=== PATIENT | male | born 1995 | race Caucasian/White ===

== ENCOUNTER 2019-02-16 18:08 | Emergency (ER) | payer OTHER ==
--- NOTE | 2019-02-16 18:40 | ERPHSYRPT ---
- History of Present Illness Time Seen by Provider: 02/16/19 18:39 Source: patient Exam Limitations: no limitations Patient Subjective Stated Complaint: pt stated that headache began yesterday at 3 pm and has been increasing in pain ever since, pt rates pain 01/03 Triage Nursing Assessment: pt stated he has had headache for the past 24 hours, pt eyes are equal and reactive, felt carbonizer equal, presses and pulls equal, no numbness stated today, vitals wnl Timing/Duration: yesterday, gradual onset, other (persistent JULIO, OTC med. helping little) Quality: dullness, throbbing Head Pain Location: frontal Severity of Pain-Max: moderate Severity of Pain-Current: moderate Recent Head Trauma: no recent headache/trauma, occasional headaches Modifying Factors: Improves With: exposure to light Associated Symptoms: nausea/vomiting, sensitive to light, No confusion, No facial pain, No fever/chills, No nasal congestion, No nasal drainage, No sinus infection, No stiff neck, No trouble walking, No vision changes Previous symptoms: same symptoms as today (worse than usual JULIO) Allergies/Adverse Reactions: No Known Drug Allergies Allergy (Unverified 02/16/19 18:25) Immunizations Up to Date: Yes - Review of Systems Constitutional: No Fever, No Chills Eyes: No Symptoms, No Eye Pain, No Vision Changes Ears, Nose, & Throat: No Symptoms, No Nose Congestion, No Nose Discharge, No Throat Pain, No Throat Swelling Respiratory: No Cough, No Dyspnea Cardiac: No Chest Pain, No Edema, No Syncope Abdominal/Gastrointestinal: Nausea, No Abdominal Pain, No Vomiting, No Diarrhea Genitourinary Symptoms: No Dysuria Musculoskeletal: No Symptoms, No Back Pain, No Neck Pain Skin: No Symptoms, No Rash Neurological: Headache, No Dizziness, No Focal Weakness, No Gait Changes, No Lethargy, No Sensory Changes, No Speech Changes, No Vertigo Psychological: No Symptoms Endocrine: No Symptoms Hematologic/Lymphatic: No Symptoms Immunological/Allergic: No Symptoms All Other Systems: Reviewed and Negative - Past Medical History Pertinent Past Medical History: Yes Neurological History: No Pertinent History ENT History: No Pertinent History Cardiac History: No Pertinent History Respiratory History: No Pertinent History Endocrine Medical History: No Pertinent History Musculoskeletal History: No Pertinent History GI Medical History: No Pertinent History History: No Pertinent History Psycho-Social History: No Pertinent History Male Reproductive Disorders: No Pertinent History - Past Surgical History Past Surgical History: No - Social History Smoking Status: Never smoker Exposure to second hand smoke: Yes Drug Use: none Patient Lives Alone: No - Nursing Vital Signs Nursing Vital Signs: Initial Vital Signs Temperature 99 F 02/16/19 18:10 Pulse Rate 70 02/16/19 18:10 Respiratory Rate 18 02/16/19 18:10 Blood Pressure 144/74 02/16/19 18:10 O2 Sat by Pulse Oximetry 98 02/16/19 18:10 Pain Scale Pain Intensity 0 - Physical Exam General Appearance: moderate distress, alert, anxiety Eye Exam: PERRL/EOMI, eyes nml inspection Ears, Nose, Throat Exam: normal ENT inspection, TMs normal, pharynx normal, moist mucous membranes Neck Exam: normal inspection, non-tender, supple, full range of motion, No meningismus, No limited range of motion, No lymphadenopathy, No midline tenderness Respiratory Exam: normal breath sounds, lungs clear, airway intact Cardiovascular Exam: regular rate/rhythm, normal heart sounds Gastrointestinal/Abdominal Exam: soft, normal bowel sounds Back Exam: normal inspection, normal range of motion Extremity Exam: normal inspection, normal range of motion Mental Status Exam: alert, oriented x 3, cooperative apprentice painter brush Exam: normal hearing, normal speech, PERRL Coordination/Gait Exam: normal gait Motor/Sensory Exam: no motor deficit, no sensory deficit SpO2: 98 - Course Nursing assessment & vital signs reviewed: Yes - CT Exams Head CT Interpretation: Negative, Tele-radiologist Report Ordered Tests: Active Orders 24 hr Category Date Time Status HEAD WITHOUT CONTRAST [CT] Stat Exams 02/16/19 18:58 Taken CBC W DIFF Stat Lab 02/16/19 19:10 Completed CMP Stat Lab 02/16/19 19:10 Completed Manual Differential NC Stat Lab 02/16/19 19:10 Completed Medication Summary Discontinued Medications Generic Name Dose Route Start Last Admin Trade Name Freq PRN Reason Stop Dose Admin Lactated Ringer's 1,000 mls @ 999 mls/hr 02/16/19 18:56 02/16/19 20:23 Lactated Ringers IV 02/16/19 19:56 Infused .Q1H1M ONE Infusion Lactated Ringer's Confirm 02/16/19 19:07 Lactated Ringers Administered 02/16/19 19:08 Dose 1,000 mls @ ud IV .STK-MED ONE Ketorolac Tromethamine 30 mg 02/16/19 20:08 02/16/19 20:18 Toradol 30 Mg Injection IV 02/16/19 20:09 30 mg STAT ONE Administration Ketorolac Tromethamine Confirm 02/16/19 20:16 Toradol 30 Mg Injection Administered 02/16/19 20:17 Dose 30 mg .ROUTE .STK-MED ONE Prochlorperazine Edisylate 10 mg 02/16/19 18:58 02/16/19 19:11 Compazine 10 Mg/2 Ml IV 02/16/19 18:59 10 mg STAT ONE Administration Prochlorperazine Edisylate Confirm 02/16/19 19:07 Compazine 10 Mg/2 Ml Administered 02/16/19 19:08 Dose 10 mg .ROUTE .STK-MED ONE Lab/Rad Data: Laboratory Result Diagrams 02/16/19 19:10 02/16/19 19:10 Laboratory Results 02/16/19 02/16/19 Range/Units 19:10 19:10 WBC 7.4 (4.0-10.5) K/mm3 RBC 5.21 (4.1-5.6) M/mm3 Hgb 15.9 (12.5-18.0) gm/dl Hct 44.7 (42-50) % MCV 85.8 (78-100) fl MCH 30.5 (26-32) pg MCHC 35.6 (32-36) g/dl RDW 12.9 (11.5-14.0) % Plt Count 160 (150-450) K/mm3 MPV 10.7 H (6-9.5) fl Segmented Neutrophils 48 (36.-66.) % Band Neutrophils 2 (0.0-2.0) % Lymphocytes (Manual) 46 H (24-44) % Monocytes (Manual) 3 (0.0-12.0) % Eosinophils (Manual) 1 (0.00-3.0) % Platelet Estimate NORMAL (NORMAL) RBC Morphology ABNORMAL Poikilocytosis 1+ Anisocytosis 1+ Sodium 142 (137-145) mmol/L Potassium 4.5 (3.5-5.1) mmol/L Chloride 103 (98-107) mmol/L Carbon Dioxide 29 (22-30) mmol/L Anion Gap 14.6 (5-15) MEQ/L BUN 12 (9-20) mg/dL Creatinine 0.73 (0.66-1.25) mg/dL Estimated GFR > 60.0 ML/MIN Glucose 99 (74-106) mg/dL Calcium 9.5 (8.4-10.2) mg/dL Total Bilirubin 0.80 (0.2-1.3) mg/dL AST 24 (17-59) U/L ALT 22 (0-50) U/L Alkaline Phosphatase 70 (38-126) U/L Serum Total Protein 7.7 (6.3-8.2) g/dL Albumin 4.4 (3.5-5.0) g/dL - Progress Progress: improved, re-examined Air Movement: good Progress Note: 02/16/19 22:33 JULIO almost completely resolved with med. Recheck with PCP prn. Blood Culture(s) Obtained: No Antibiotics given: No Counseled pt/family regarding: lab results, diagnosis, need for follow-up, rad results - Departure Departure Disposition: Home Clinical Impression: Headache Qualifiers: Headache type: other headache syndrome Qualified Code(s): G44.89 - Other headache syndrome Condition: Stable Critical Care Time: No Referrals: RUDY MCDONALD NP [Primary Care Provider] - Instructions: Headache, Adult (DC) Additional Instructions: See your family for a recheck if headache persists. Over the counter medicine like aleve OK to try. Plan of Treatment: OTC med. . see PCP
[2019-02-16] MEDS ORDERED: Lactated Ringers 1,000 ML IV ONE ×2 (18:56→19:07)
[2019-02-16] MEDS ORDERED: Compazine 10 MG/2 ML IV ONE (18:58)
[2019-02-16] MEDS ORDERED: Compazine 10 MG/2 ML ONE (19:07)
[2019-02-16 19:19] LABS: Hematocrit 44.7 % (42-50); Hemoglobin 15.9 gm/dl (12.5-18.0); Mean Cell Volume 85.8 fl (78-100); Mean Corpuscular Hemoglobin 30.5 pg (26-32); Mean Corpuscular Hgb Concent. 35.6 g/dl (32-36); Mean Platelet Volume 10.7 fl (6-9.5); Platelet Count 160 K/mm3 (150-450); Red Blood Count 5.21 M/mm3 (4.1-5.6); Red Cell Distribution Width 12.9 % (11.5-14.0); White Blood Count 7.4 K/mm3 (4.0-10.5)
[2019-02-16 19:33] LABS: ALBUMIN 4.4 g/dL (3.5-5.0); ALKALINE PHOSPHATASE 70 U/L (38-126); ANION GAP 14.6 MEQ/L (5-15); BLOOD UREA NITROGEN 12 mg/dL (9-20); CHLORIDE 103 mmol/L (98-107); Calcium 9.5 mg/dL (8.4-10.2); Carbon Dioxide 29 mmol/L (22-30); Creatinine 1 0.73 mg/dL (0.66-1.25); Glucose 99 mg/dL (74-106); Potassium 4.5 mmol/L (3.5-5.1); SGOT/AST 24 U/L (17-59); SGPT/ALT 22 U/L (0-50); SODIUM 142 mmol/L (137-145); Total Protein 7.7 g/dL (6.3-8.2)
[2019-02-16] MEDS ORDERED: TORAdol 30 mg Injection IV ONE (20:08)
[2019-02-16] MEDS ORDERED: TORAdol 30 mg Injection ONE (20:16)
[2019-02-16 20:24] LABS: ANISOCYTOSIS 1+; BAND 2 % (0.0-2.0); Eosinophil 1 % (0.00-3.0); Lymphocytes 46 % (24-44); Monocyte 3 % (0.0-12.0); Neutrophils 48 % (36.-66.); Platelet Estimate NORMAL (NORMAL); Poikilocytosis 1+; Total Cells Counted 100
[2019-02-16 21:28] VITALS: BP 128/78; PULSE 65
[2019-02-16 22:34] VITALS: O2SAT 98
--- NOTE | 2019-02-17 16:42 | XRAY ---
Exam: CT of the head without IV contrast from 02/16/2019. CTDI: 68.15 mGy Comparison: None. Indication: 23-year-old male with severe frontal headache. Technique: Non-IV contrast axial images were obtained through the brain. Reconstructed coronal and sagittal images were created and reviewed. Findings: The ventricles are of normal size and configuration. No focal mass effect or midline shift is seen. No acute intracranial bleed or abnormal extra-axial fluid collection is seen. The velasquez matter-white matter junctions appear unremarkable. No low attenuation territorial infarct or focal edema is seen. Structures of the posterior fossa appear unremarkable with a normal-sized fourth ventricle. The cortical sulci and basilar cisterns appear unremarkable. The calvarium of the skull reveals no acute fracture or other significant focal bone lesion. Minimal mucosal thickening is seen within the posterior left ethmoid sinus and the posterior lateral margin of the right side of the sphenoid sinus. No air-fluid levels are seen. The mastoid air cells are well aerated without evidence of effusion. The middle ear cavities appear grossly unremarkable. The orbits reveal no significant abnormality. Impression: 1. No acute intracranial bleed or other acute intracranial process is seen. Occasional motion artifact was identified.
== END 2019-02-16 21:31 | disposition home or self-care (01) ==
LOC: ED 18:08
DX: G44.89 Other headache syndrome (principal)
CPT/HCPCS: 36000; 36415; 70450; 80053; 85025; 96360; 96374; 96375; 99284; J1885